=== PATIENT | male | born 1975 | race Asian ===

== ENCOUNTER 2017-09-30 10:15 | Emergency (ER) | payer OTHER ==
[~2017-09-30] VITALS: Ht 170.2 cm; Wt 65.0 kg
[2017-09-30] MEDS ORDERED: IBUPROFEN 600MG TABLET PO ONE (12:30)
[2017-09-30] MEDS ORDERED: BACITRACIN ZINC OINT UDPKT TOP ONE (12:30)
[2017-09-30 13:44] VITALS: BP 122/77
== END 2017-09-30 13:45 | disposition home or self-care (01) ==
LOC: ER 10:54
DX: M25.561 Pain in right knee (principal); M25.562 Pain in left knee
CPT/HCPCS: 73562; 99284